=== PATIENT | male | born 1930 | race Caucasian/White ===

== ENCOUNTER 2016-12-29 08:28 | Outpatient (CLI) | payer MEDICARE, OTHER ==
[2016-12-29 09:29] LABS: BASOPHILS % 0.6 (0.0-1.5); EOSINOPHILS % 2.3 % (0.0-6.8); MEAN CORPUSCULAR HEMOGLOBIN 27.4 pg (28.0-34.0); MEAN CORPUSCULAR VOLUME 86.2 fl (80.0-100.0); MONOCYTES % 5.1 % (0.0-11.0); NEUTROPHILS # 3.6 # k/uL (1.4-7.7)
[2016-12-29 09:37] LABS: eGFR (African) 46; eGFR (Non-African) 38
--- NOTE | 2016-12-29 14:15 | Diagnostic Imaging Report ---
[facility] [id number] [facility].[address] [id number] Report Submission Date: December 29, 2016 10:56:37 AM CDT Patient Study Name: MARIA DEL CARMEN GONZALEZ Date: December 29, 2016 9:46:54 AM CDT Modality Type: CR Gender: M Description: CHEST : 30 Institution: [facility] Physician: SUGEY MAE Chest -two views CLINICAL HISTORY: Hypertension. FINDINGS: Examination of the chest in PA and lateral views with no prior film for comparison demonstrates the lungs to be hypoventilated with bibasilar atelectasis. Cardiac silhouette is prominent and the aorta is atherosclerotic. There are multiple sternotomy wires. Degenerative changes are seen in the shoulders and thoracic vertebrae. IMPRESSION: Hypoventilation. Bibasilar atelectasis. Aortic atherosclerosis. Postoperative chest. Electronically signed on December 29, 2016 10:56:37 AM CDT by: Davian SCHAFFER
== END 2016-12-29 08:30 ==
LOC: RAD 08:28
PROVIDERS: ATTEND Internal Medicine Cardiovascular Disease
DX: I10 Essential (primary) hypertension (principal); I25.10 Atherosclerotic heart disease of native coronary artery without angina pectoris; I71.2 Thoracic aortic aneurysm, without rupture; E78.00 Pure hypercholesterolemia, unspecified
CPT/HCPCS: 36415; 71020; 80053; 80061; 84439; 84443; 85025